=== PATIENT | female | born 2000 | race Caucasian/White ===

== ENCOUNTER → 2023-06-13 15:00 | Outpatient (CLI) | payer OTHER, SELFPAY ==
--- NOTE | 2023-06-13 15:30 | DI.US.S_ITS ---
PROCEDURE: US OB <= 14 WEEKS FETUS INDICATIONS: dating and viability OUTSIDE/PRIOR DATING DATA: Last menstrual period (LMP): 04/15/2023. LMP-based estimated date of delivery (MARIAM): 01/20/2024. First dating scan (date and location): 06/13/2023. Estimated date of delivery (MARIAM) from first dating scan: 01/23/2024. TECHNIQUE: Real-time scanning was performed of the fetus and maternal pelvic organs, with image documentation. Endovaginal scanning was also performed to better visualize the fetus and maternal ovaries. COMPARISON: None. FINDINGS: Embryo: [place]-rump length 1.6 cm corresponds with a 8 week 0 day gestation Heart rate: 165 beats per minute Maternal organs: Left ovarian corpus luteum cyst. Right ovary not visualized. Cervix measures 3.1 cm in length and is closed. Yolk sac identified. IMPRESSION: Single live intrauterine consistent with a 8 week 0 day gestation Approved by: Michael Joseph M.D. on 06/13/2023 at 18:52
== END ==
LOC: US 15:01
PROVIDERS: Referring Provider Family Medicine; Visit Provider Family Medicine
DX: Z34.01 Encounter for supervision of normal first pregnancy, first trimester (principal); Z3A.08 8 weeks gestation of pregnancy
CPT/HCPCS: 76801

== ENCOUNTER → 2023-07-10 16:34 | Outpatient (CLI) | payer OTHER, SELFPAY ==
[2023-07-10 20:51] LABS: Urine N gonorrhoeae NOT DETECTED
[2023-07-10 21:00] LABS: Urine Chlamydia NOT DETECTED
== END ==
PROVIDERS: PCP Student in an Organized Health Care Education/Training Program; Visit Provider Family Medicine
DX: Z11.3 Encounter for screening for infections with a predominantly sexual mode of transmission (principal)
CPT/HCPCS: 87210; 87491; 87591

== ENCOUNTER 2023-07-11 01:01 | Emergency (ER) | payer OTHER, SELFPAY ==
--- NOTE | 2023-07-11 01:09 | ED_ITS ---
HPI - General Chief complaint: Vaginal Bleeding Stated complaint: MISCARRIAGE Time Seen by Provider: 07/11/23 01:03 History of Present Illness HPI Narrative: Ashish at 12w2d presents for heavy vaginal bleeding this evening. She saw her OBGYN this morning for bleeding in and was told that she may likely have a miscarriage. She was told to come to the ER if her bleeding worsened. Patient reports heavy bleeding starting around 11:00 p.m.. Thinks she is blood type A- Related Data Home Medications Medication Instructions Recorded Confirmed albuterol sulfate 90 mcg/actuation 2 puff inhalation Q4-6H PRN 05/23/23 07/10/23 aerosol inhaler cyclobenzaprine 10 mg tablet 10 mg PO BEDTIME PRN occipital 05/23/23 07/10/23 neuralgia vitamin-ferrous sulfate tab PO 05/23/23 07/10/23 27 mg iron-folic acid 0.8 mg tablet Allergies Allergy/AdvReac Type Severity Reaction Status Date / Time Penicillins [PENICILLINS] Allergy Intermediate Hives Verified 07/11/23 01:23 Review of Systems Review of Systems Narrative: See HPI Exam Narrative Exam Narrative: Const: Awake, alert, no acute distress, nontoxic appearing Cardiac: regular rate, regular rhythm RESP: unlabored, clear bilaterally, no wheezing GI: Soft, nontender, nondistended : Claim Service Representative present, cervical os open, tissue actively being expelled from cervix Skin: Warm, Dry, intact, no rashes Neuro: AO x3, CN II-XII grossly intact, moves all extremities Initial Vital Signs Initial Vital Signs: Vital Signs Temperature 98.2 F 07/11/23 01:17 Pulse Rate 80 07/11/23 01:17 Respiratory Rate 20 07/11/23 01:17 Blood Pressure 103/51 L 07/11/23 01:17 Pulse Oximetry 96 07/11/23 01:17 Oxygen Delivery Method Room Air 07/11/23 01:17 Course Orders Ordered: ED Orders 07/11/23 01:10 ABO RH Type Stat CBC Auto Diff [Complete Blood Count AUTO DIFF] Stat CMP [Comprehensive Metabolic Panel] Stat HCG Quantitative /Beta subunit Stat Discontinued Medications Sodium Chloride (Normal Saline 0.9%) 1,000 mls @ 1,000 mls/hr IV BOLUS ONE Stop: 07/11/23 02:09 Last Infusion: 07/11/23 02:00 Dose: Infused Documented By: Admin: 07/11/23 01:14 Dose: 1,000 mls/hr Documented By: Ondansetron HCl (Ondansetron 4 Mg/2 Ml Inj) 4 mg IV NOW ONE Stop: 07/11/23 01:11 Last Admin: 07/11/23 01:15 Dose: 4 mg Documented By: Rho Immune Globulin (Rho(D) Immune Globulin 1,500 Unit Syringe) 1,500 unit IM NOW ONE Stop: 07/11/23 01:55 Last Admin: 07/11/23 02:10 Dose: 1,500 unit Documented By: Vital Signs Vital signs: Vital Signs - 8 hr 07/11/23 01:17 07/11/23 02:00 07/11/23 02:01 Temperature 98.2 F Pulse Rate 80 75 Respiratory Rate 20 Blood Pressure 103/51 L 114/62 Pulse Oximetry 96 98 Oxygen Delivery Method Room Air 07/11/23 02:30 07/11/23 02:30 Temperature Pulse Rate 68 Respiratory Rate Blood Pressure 148/79 H Pulse Oximetry 98 Oxygen Delivery Method MDM - OB/Uterine Contractions Differential Diagnosis Differential diagnosis: Likely -induced hypertension and other (threatened miscarriage, completed miscarriage) Lab Data 07/11/23 01:10 07/11/23 01:10 Labs: Lab Results 07/11/23 Range/Units 01:10 WBC 11.5 H (4.5-11.0) X10^3/uL RBC 4.32 (4.0-5.2) X10^6/uL Hgb 12.3 (12.0-16.0) g/dL Hct 36.3 (36-46) % MCV 84.1 (80-100) fL MCH 28.5 (26-34) PG MCHC 34.0 (30-36) % RDW 12.8 (11.6-14.8) % Plt Count 232 (150-400) X10^3/uL Neut % (Auto) 67.8 (50-75) % Lymph % (Auto) 23.5 L (25-40) % [place] % (Auto) 7.2 (3-14) % Eos % (Auto) 1.0 L (2-4) % Baso % (Auto) 0.5 (0-2) % Neut # (Auto) 7800 H (1353-4769) /uL Lymph # (Auto) 2700 (6608-1835) /uL [place] # (Auto) 800 (0-900) /uL Eos # (Auto) 100 (0-450) /uL Baso # (Auto) 100 (0-100) /uL Sodium 138 (137-145) mmol/L Potassium 4.0 (3.4-5.1) mmol/L Chloride 108 H (98-107) mmol/L Carbon Dioxide 22 (22-32) mmol/L BUN 5 L (7-17) mg/dL Creatinine 0.46 L (0.52-1.04) mg/dL Estimated GFR > 60 (>60) mL/min BUN/Creatinine Ratio 10.9 (6-22) Glucose 112 H (70-100) mg/dL Calcium 9.5 (8.4-10.2) mg/dL Total Bilirubin 0.5 (0.2-1.3) mg/dL AST 29 (14-36) IU/L ALT 23 (<35) IU/L Alkaline Phosphatase 69 (38-126) U/L Total Protein 7.5 (6.3-8.2) g/dL Albumin 4.4 (3.5-5.0) g/dL Globulin 3.1 (1.7-4.1) g/dL Albumin/Globulin Ratio 1.4 (1.0-2.8) HCG, Quant 4326.7 mIU/mL Blood Type A Negative MDM Narrative Medical decision making narrative: Large amount of bleeding and clots with tissue passage in first-trimester . Patient already has confirmed IUP, she is most likely actively miscarrying. Cervix is open with active tissue passage through the os. Patient confirmed to be blood type A negative and she was given RhoGAM. HCG quant obtained and patient advised to follow up with OBGYN to ensure it returns to normal Discharge Plan Departure Patient Disposition: Home Clinical Impression: Miscarriage, Type A blood, Rh negative Instructions: DI for Miscarriage Activity Restrictions/Additional Instructions: Follow up with your OBGYN to ensure that your HCG returns to normal. Prescriptions: No Action vit-ferrous sulfat-FA 27 mg iron- 0.8 mg tablet PO albuterol sulfate 90 mcg/actuation HFA aerosol inhaler 2 puff inhalation Q4-6H PRN cyclobenzaprine 10 mg tablet 10 mg PO BEDTIME PRN (Reason: occipital neuralgia) Referrals: Mary Claire MD [Primary Care Provider] - Stand Alone Forms: Patient Portal/API, Work Release Note
[2023-07-11] MEDS: SODIUM CHLORIDE 0.9% 1,000 ML 1000 ML IV (01:14)
[2023-07-11] MEDS: ONDANSETRON 4 MG/2 ML INJ IV (01:15)
[2023-07-11 01:17] VITALS: BP 103/51; PULSE 80; RESP 20; TEMP 36.8; O2SAT 96; BMI 34.9
[2023-07-11 01:28] LABS: Add Manual Diff / Slide Review NO; Basophils Absolute Auto 100 /uL (0-100); Basophils Percent Auto 0.5 % (0-2); Eosinophils Absolute Auto 100 /uL (0-450); Hematocrit 36.3 % (36-46); Hemoglobin 12.3 g/dL (12.0-16.0); Lymphocytes Absolute Auto 2700 /uL (1100-4500); Lymphocytes Percent Auto 23.5 % (25-40); Mean Corpuscular Hemoglobin 28.5 PG (26-34); Mean Corpuscular Volume 84.1 fL (80-100); Monocytes Absolute Auto 800 /uL (0-900); Monocytes Percent Auto 7.2 % (3-14); Neutrophils Absolute Auto 7800 /uL (1500-7000); Neutrophils Percent Auto 67.8 % (50-75); Platelet Count 232 X10^3/uL (150-400); Red Blood Cell Count 4.32 X10^6/uL (4.0-5.2); Red Cell Distribution Width 12.8 % (11.6-14.8); White Blood Cell Count 11.5 X10^3/uL (4.5-11.0)
[2023-07-11 01:40] LABS: Alanine Aminotransferase 23 IU/L (<35); Albumin 4.4 g/dL (3.5-5.0); Albumin Globulin Ratio 1.4 (1.0-2.8); Alkaline Phosphatase 69 U/L (38-126); Aspartate Aminotransferase 29 IU/L (14-36); BUN Creatinine Ratio 10.9 (6-22); Bilirubin Total 0.5 mg/dL (0.2-1.3); Blood Urea Nitrogen 5 mg/dL (7-17); Calcium 9.5 mg/dL (8.4-10.2); Carbon Dioxide 22 mmol/L (22-32); Chloride 108 mmol/L (98-107); Estimated Glomerular Filt Rate > 60 mL/min (>60); Globulin 3.1 g/dL (1.7-4.1); Glucose 112 mg/dL (70-100); HEMOLYSIS < 15 (0-50); Sodium 138 mmol/L (137-145); Total Protein 7.5 g/dL (6.3-8.2)
[2023-07-11 02:00] VITALS: BP 114/62
[2023-07-11 02:01] VITALS: PULSE 75; O2SAT 98
[2023-07-11] MEDS: RHO(D) IMMUNE GLOBULIN 1,500 UNIT SYRINGE 1500 UNIT IM (02:10)
[2023-07-11 02:30] VITALS: BP 148/79; PULSE 68; O2SAT 98
[2023-07-11 02:55] LABS: HCG Quantitative /Beta subunit 4326.7 mIU/mL
== END 2023-07-11 02:53 | disposition home or self-care (01) ==
PROVIDERS: Emergency Provider Emergency Medicine; PCP Student in an Organized Health Care Education/Training Program
DX: O03.9 Complete or unspecified spontaneous abortion without complication (principal); Z67.11 Type A blood, Rh negative
CPT/HCPCS: 36415; 80053; 84702; 85025; 86900; 86901; 96372; 96374; 99284; J2405; J2790

== ENCOUNTER → 2023-07-21 16:22 | Outpatient (CLI) | payer OTHER, SELFPAY | PROVIDERS: PCP Student in an Organized Health Care Education/Training Program; Referring Provider Family Medicine; Visit Provider Family Medicine | DX: O03.9 Complete or unspecified spontaneous abortion without complication (principal) | CPT/HCPCS: 36415; 86644; 86645 ==

== ENCOUNTER → 2023-10-16 15:40 | Outpatient (CLI) | payer OTHER, SELFPAY ==
--- NOTE | 2023-10-16 15:42 | DI.US.S_ITS ---
PROCEDURE: US OB <= 14 WEEKS FETUS INDICATIONS: dating and viability OUTSIDE/PRIOR DATING DATA: Last menstrual period (LMP): 08/17/2023 LMP-based estimated date of delivery (MARIAM): 05/23/2024 First dating scan (date and location): 10/16/2023 Estimated date of delivery (MARIAM) from first dating scan: 05/24/2024 TECHNIQUE: Real-time scanning was performed of the fetus and maternal pelvic organs, with image documentation. Endovaginal scanning was also performed to better visualize the fetus and maternal ovaries. COMPARISON: [facility], , OB <= 14 WEEKS FETUS, 06/13/2023, 15:38. FINDINGS: Embryo: Single live intrauterine gestation is seen with fetus and yolk sac seen. [place]-rump length measures 1.9 cm. Estimated gestational age is 8 weeks, 3 days. Heart rate: 165 beats per minute. Maternal organs: Corpus luteal cyst is seen in right ovary measures 1.5 x 1.5 x 1.3 cm in size. Small perigestational hematoma is noted measures 0.4 x 0.6 x 1.0 cm in size. IMPRESSION: 1. Single live intrauterine gestation with fetus and yolk sac seen. Estimated gestational age based on current study is 8 weeks, 3 days. heart rate is 165 beats per minute. 2. Corpus luteal cyst in right ovary measures 1.5 cm in size. Tiny perigestational hematoma as above. We strive to produce accurate, complete, and clear reports of imaging services. To assist us in improving patient care, this report was composed using standard report templates and voice recognition software. Therefore, it may contain abnormal punctuation, insertions and/or omissions. Occasional wrong-word or sound-alike substitutions may occur. Though we review the report and make efforts to correct it, we do recommend that the report be read carefully in proper context to recognize any text inaccuracies. Dictated by: Michael Chu M.D. on 10/17/2023 at 14:25 Approved by: Michael Chu M.D. on 10/17/2023 at 14:30
== END ==
PROVIDERS: PCP Family Medicine; Referring Provider Family Medicine; Visit Provider Family Medicine
DX: O34.81 Maternal care for other abnormalities of pelvic organs, first trimester (principal); N83.11 Corpus luteum cyst of right ovary; Z3A.08 8 weeks gestation of pregnancy
CPT/HCPCS: 76801; 76817

== ENCOUNTER → 2023-11-23 16:43 | Outpatient (CLI) | payer OTHER, SELFPAY ==
[2023-11-23 17:47] LABS: Natera Collection Specimen Collected
[2023-11-24 01:25] LABS: Rubella Antibody IgG 34.9 IU/mL (>15)
== END ==
LOC: LAB 16:43
PROVIDERS: PCP Family Medicine; Referring Provider Family Medicine; Visit Provider Family Medicine
DX: Z34.80 Encounter for supervision of other normal pregnancy, unspecified trimester (principal)
CPT/HCPCS: 36415; 86592; 86762; 86787; 86850; 86900; 86901; 87535; 87538

== ENCOUNTER → 2023-12-28 14:48 | Outpatient (CLI) | payer OTHER, SELFPAY ==
--- NOTE | 2023-12-28 15:00 | DI.US.S_ITS ---
PROCEDURE: US OB >= 14 WEEKS FETUS INDICATIONS: ANATOMY OUTSIDE/PRIOR DATING DATA: Last menstrual period (LMP): 08/17/2023. LMP-based estimated date of delivery (MARIAM): 05/23/2024. First dating scan (date and location): 10/16/2023. Estimated date of delivery (MARIAM) from first dating scan: 05/24/2024. The calculations are made using the clinical MARIAM of 05/23/2024. TECHNIQUE: Real-time scanning was performed of the fetus, with image documentation and biometric measurements. Endovaginal scanning: Not performed COMPARISON: Ob ultrasound 10/16/2023. FINDINGS: General: A single living intrauterine gestation is present. Presentation: Vertex. Placenta: Placental position is posterior , without previa. Amniotic fluid index: 15.0 cm, normal range is 5-24 cm. Single deepest vertical pocket is 4.2 cm. heart rate: 133 beats per minute. Maternal cervical canal: 2.7 cm long. Normal lower limit is 2.5 cm. biometrics: Biparietal diameter: 4.6 cm Head circumference: 16.6 cm Abdominal circumference: 13.9 cm Femur length: 3.1 cm Clinically estimated gestational age: 19 weeks, 0 days (based on LMP) Composite gestational age from present scan: 19 weeks, 4 days Estimated weight and percentile: 290 g, 69th percentile Anatomic survey: Neuro: Ventricles are non-dilated at less than 10 mm. Cisterna magna is normal at 3-11 mm. Cerebellum is normal in size and morphology. Nuchal skin fold: Normal at less than 6 mm between 14-21 weeks gestational age. Face: Nose and lips, facial profile are not well visualized. Spine: No evidence for spina bifida. Heart: 4-chambered heart is present, with normal ventricular outflow tracts. Diaphragm: Diaphragm is intact. Stomach: Left-sided stomach is present. Kidneys: No hydronephrosis. Normal is less than 5 mm in 2nd trimester, less than 7 mm in 3rd trimester. Cord: 3-vessel cord has orthotopic insertion. Bladder: Normal in size. Extremities: All 4 extremities identified. IMPRESSION: Single intrauterine gestation in vertex presentation with estimated gestational age of 19 weeks, 4 days by biometry which is concordant clinical dating. Estimated weight in 69th percentile. anatomic survey demonstrates no gross abnormalities. face, lips and orbits are not well visualized secondary to position. Recommend short interval follow-up to complete anatomic survey. Approved by: Pearl Underwood M.D.,Ph.D. on 12/29/2023 at 3:42
== END ==
PROVIDERS: PCP Family Medicine; Referring Provider Family Medicine; Visit Provider Family Medicine
DX: Z34.82 Encounter for supervision of other normal pregnancy, second trimester (principal); Z3A.19 19 weeks gestation of pregnancy
CPT/HCPCS: 76811

== ENCOUNTER → 2024-01-03 13:46 | Outpatient (CLI) | payer OTHER, SELFPAY ==
--- NOTE | 2024-01-03 13:47 | DI.US.S_ITS ---
PROCEDURE: US OB FOLLOW UP INDICATIONS: face, lips and orbits are not well visualized OUTSIDE/PRIOR DATING DATA: Last menstrual period (LMP): 08/17/2023. LMP-based estimated date of delivery (MARIAM): 05/23/2024. First dating scan (date and location): 10/16/2023. Estimated date of delivery (MARIAM) from first dating scan: 05/24/2024. The calculations are made using the working MARIAM of 05/23/2024. TECHNIQUE: Real-time scanning was performed of the fetus, with image documentation and biometric measurements. Endovaginal scanning: No COMPARISON: None. FINDINGS: General: A single living intrauterine gestation is present. Presentation: Vertex. Placenta: Placental position is posterior , without previa. Amniotic fluid index: 16.9 cm, normal range is 5-24 cm. Single deepest vertical pocket is 6.1 cm. heart rate: 131 beats per minute. Maternal cervical canal: 3.0 cm long. Normal lower limit is 2.5 cm. biometrics: Clinically estimated gestational age: 19 week 6 days Anatomic survey: Facial profile including the nose lips and orbits are within normal limits. IMPRESSION: Single live intrauterine consistent with 19 week 6 day gestation Facial profile, nose and lips normal. This completes the normal anatomic survey Approved by: Michael Jospeh M.D. on 01/03/2024 at 16:43
== END ==
PROVIDERS: PCP Family Medicine; Referring Provider Family Medicine; Visit Provider Family Medicine
DX: Z34.82 Encounter for supervision of other normal pregnancy, second trimester (principal); Z3A.19 19 weeks gestation of pregnancy
CPT/HCPCS: 76816

== ENCOUNTER 2024-01-04 10:24 | Observation (INO) | payer OTHER, SELFPAY ==
[2024-01-04 10:55] LABS: Appearance Urine UA CLEAR; Bilirubin Urine UA NEGATIVE (NEGATIVE); Color Urine UA YELLOW; Glucose Urine UA NEGATIVE (Negative); Ketones Urine UA TRACE (NEGATIVE); Leukocyte Esterase Urine UA TRACE (NEGATIVE); Nitrite Urine UA NEGATIVE (Negative); Occult Blood Urine UA NEGATIVE (Negative); Protein Urine UA NEGATIVE (Negative); Specific Gravity Urine UA >=1.030 (1.000-1.035); Urobilinogen Urine UA 0.2 E.U./dL (0.2)
[2024-01-04 11:00] LABS: pH Urine UA 5.5 (4.5-8.0)
[2024-01-04 11:03] LABS: Urine Volume 10mL (spun)
[2024-01-04 11:04] LABS: Bacteria Urine Few (2-10); Culture Indicated Urine Cult Not Indicated; RBC Urine None Seen (0-5/HPF); Squamous Epithelial Cell Urine 1-5 /HPF (0-5/HPF); WBC Urine 1-5/HPF (0-5/HPF)
== END 2024-01-04 12:51 | disposition home or self-care (01) ==
PROVIDERS: Admitting Provider Family Medicine; PCP Family Medicine; Referring Provider Family Medicine; Visit Provider Family Medicine
DX: O26.892 Other specified pregnancy related conditions, second trimester (principal); N89.8 Other specified noninflammatory disorders of vagina; R10.30 Lower abdominal pain, unspecified; Z3A.20 20 weeks gestation of pregnancy
CPT/HCPCS: 76815; 81001; 84112; 87086; 87210; G0378; G0379

== ENCOUNTER → 2024-02-13 16:08 | Outpatient (CLI) | payer OTHER, SELFPAY ==
[2024-02-13 18:29] LABS: GTT (PREG) 1 Hour PP 50gm Dose 140 mg/dL (76-139)
== END ==
PROVIDERS: PCP Family Medicine; Referring Provider Family Medicine; Visit Provider Family Medicine
DX: Z34.80 Encounter for supervision of other normal pregnancy, unspecified trimester (principal)
CPT/HCPCS: 36415; 82950

== ENCOUNTER → 2024-04-26 14:23 | Outpatient (CLI) | payer OTHER, SELFPAY ==
[2024-04-27 11:23] LABS: Strep Grp B PCR NEG for Grp B Strep
== END ==
PROVIDERS: PCP Family Medicine; Visit Provider Family Medicine
DX: Z34.80 Encounter for supervision of other normal pregnancy, unspecified trimester (principal)
CPT/HCPCS: 87653

== ENCOUNTER 2024-05-30 11:33 | Inpatient (IN) | payer OTHER, SELFPAY ==
--- NOTE | 2024-05-30 13:07 | PM.OBHP.IH.1 ---
OB HPI Date/Time Date of admission: 05/30/24 Date Patient Seen: 05/30/24 Time Patient Seen: 12:50 History of Present Condition Chief complaint: NST MARIAM Calculator Estimated Delivery Date Method Current WG Current Estimate 05/23/24 LMP (Certain) 41w 0d Other Estimates 05/24/24 Ultrasound #1 40w 6d Estimated Gestational Age (weeks): 41w0d : 2 Para: 0 Narrative: 23 yo (first trimester SAB) presenting with LOF. This AM around 4am she noted trickling of fluids. She is not feeling any significant contractions but overnight from 12-3am she did have more frequent painful contractions. No vaginal bleeding. She is feeling baby move care: good care Dating criteria OB: LMP confirmed by 1st trimester US Ultrasounds: normal 1st trimester US and normal mid trimester US Obstetrical complications: none Medical complications OB: none Preadmission Labs Last OB Lab Results: Blood Type A Negative 11/23/23 16:47 Antibody Screen Negative 11/23/23 16:47 Hct 36.3 % (36-46) 07/11/23 01:10 Hgb 12.3 g/dL (12.0-16.0) 07/11/23 01:10 Rubella Antibody 34.9 IU/mL (>15) 11/23/23 16:47 VZV IgG Antibody <135 index (Immune >165) L 11/23/23 16:47 Glucose 1 Hr 50 gm 140 mg/dL (76-139) H 02/13/24 17:45 Group B Strep (PCR) Neg for grp b strep 04/26/24 12:30 Glucose Tolerance Testin hr (140, unable to complete 3hr due to vomiting, glucose checks nml ) -: Chlamydia screen: negative, Gonorrhea screen: negative and Urine: negative -: PAP smear: Abnormal (07/10/23, unsatisfactory, planning for repeat PP) Genetic Screens: Cell-free DNA: Normal (low risk female ) External Labs -: Urine: negative Prior (ies) Past Pregnancies Del. Date GA/Weeks Labor Lgth Wt Sex Route Outcome Anesthesia Place Delv Breastfeed Preg Comp Name 07/10/23 8-10 spontaneous Delivery Date: 07/10/23 Last Updated by: Kathryn Pretty RN Resolved spontaneously, no complications Hx # Term Pregnancies: 0 Hx # Pregnancies: 0 Number of Living Children: 0 Multiple births: 0 Spontaneous abortions: 1 Ectopic pregnancies: 0 Elective abortions: 0 Evaluation Evaluation Baseline heart rate: 120 Variability: Moderate (11-25) monitor accelerations: Present Monitor Decelerations: Absent Contraction Frequency (minutes): 0 Status: Category l Dilation (cm): 1.5 Effacement (%): 60 Dilation: 1-2 cm Effacement: 60-70% station: -3 Position of cervix: mid Consistency: medium Churchill score: 5 Non-invasive Membranes Rupture Test: positive PFSH Medical History (Updated 09/18/23 @ 11:38 by Kathryn Pretty RN) Headache Miscarriage Fibromyalgia (~2014) Migraine with aura Asthma Left ovarian cyst TMJ (temporomandibular joint disorder) Joint injury Finger fracture Toe fracture Surgical History (Updated 05/23/23 @ 15:12 by Kathryn Pretty RN) H/O esophagogastroduodenoscopy (~2011) History of tonsillectomy and adenoidectomy [place] teeth extracted Family History (Updated 05/23/23 @ 15:19 by Kathryn Pretty RN) Mother Hypertrophic obstructive cardiomyopathy Diabetes mellitus Hypertension Migraine Rosai-Chaz disease Brother Diabetes mellitus Grandmother Diabetes mellitus Hypertension Grandfather Coagulopathy Granddaughter Fibromyalgia Rheumatoid arthritis Family/Other Autism Aunt Hodgkin lymphoma Aunt Hodgkin lymphoma Grandmother Heart disease Social History marital status: number of children: 0 household members: spouse lives independently: No caregiver/support person: No housing: other pets and animals: Yes (dog) education level: college occupational status: employed current occupational exposures/hazards: Yes special eli needs: No travel history: recent seatbelt use: always water heater temp set < 120 deg: Yes working smoke detector in home: Yes fire extinguisher in home: Yes carbon monox detector in home: Yes firearms in home: Yes firearms unloaded and locked: Yes do you feel safe at home: Yes Smoking Status: Never smoker second hand exposure: Yes (parents and grandparents smoke) alcohol intake: former substance use type: does not use during the past year weight has: remained stable well-balanced diet: about half the time daily servings fruits/ve-4 caffeine: Yes (estimates <50mg/day) Type(s) of exercise: walking frequency: daily Meds Home Medications and Allergies Home Medications Medication Instructions Recorded Confirmed Type albuterol sulfate 90 mcg/actuation 2 puff inhalation Q4-6H PRN 05/23/23 05/24/24 History aerosol inhaler cyclobenzaprine 10 mg tablet 10 mg PO BEDTIME PRN occipital 05/23/23 05/24/24 History neuralgia vitamin-ferrous sulfate tab PO 05/23/23 05/24/24 History 27 mg iron-folic acid 0.8 mg tablet glucometer #1 ea 02/22/24 05/24/24 Rx glucometer test strips #100 ea 02/22/24 05/24/24 Rx lancets (Accu-Chek Softclix #100 ea 02/22/24 05/24/24 Rx Lancets) breast pump #1 ea 04/12/24 05/24/24 Rx hydroxyzine pamoate 25 mg capsule 25 mg PO BEDTIME PRN iching #60 04/19/24 05/24/24 Rx (Vistaril) caps ondansetron 4 mg disintegrating 4 mg PO Q8H PRN nausea and 05/03/24 05/24/24 Rx tablet vomiting #30 tabs Allergies Allergy/AdvReac Type Severity Reaction Status Date / Time Penicillins [PENICILLINS] Allergy Intermediate Hives Verified 05/24/24 08:01 Review of Systems Review of Systems Narrative: + LOF + FM - Ctx - VB OB Exam Vital signs Temperature: 97.2 F Narrative Exam Narrative: GEN: well appearing, NAD Eyes: EOMI CV: warm and well perfused Pulm: breathing comfortably on RA ABD: gravid, non-tender : nml external genitalia SVE: 1.5/60/-3/mod/mid MSK: scan edema, symmetric Assessment and Plan Assessment and Plan Assessment and Plan narrative: 23 yo (first trimester SAB) presenting with LOF. This AM around 4am she noted trickling of fluids. Amnisure + on arrival ## SROM: Amnisure +, no contractions - Admit to LD - continuous monitoring - TS, CBC - Will give oral cytotec due to staffing shortages, will transition to Pit once able - Epidural available at pt request - GBS negative - Sutures palpated on exam - Low risk babygirl ## Failed 1hr GTT, unable to tolerate 3hr- checked glucomter reads with all nml reads - stools at bedside with delivery ## Varicella non-immune - PP MMR-V Time-Based Coding :: [TOTAL MINUTES] spent with patient and on the chart (including review of chart, obtaining history, exam, reviewing outside data, placing orders, documenting exam and treatment plan, and counseling patient) on [DATE].
[2024-05-30 13:24] VITALS: TEMP 36.2
[2024-05-30 13:59] LABS: Add Manual Diff / Slide Review NO; Basophils Absolute Auto 0 /uL (0-100); Basophils Percent Auto 0.4 % (0-2); Eosinophils Absolute Auto 0 /uL (0-450); Eosinophils Percent Auto 0.2 % (2-4); Hematocrit 29.6 % (36-46); Hemoglobin 9.8 g/dL (12.0-16.0); Lymphocytes Absolute Auto 1400 /uL (1100-4500); Mean Corpuscular Hemoglobin 25.3 PG (26-34); Mean Corpuscular Volume 76.7 fL (80-100); Monocytes Absolute Auto 600 /uL (0-900); Monocytes Percent Auto 5.8 % (3-14); Neutrophils Absolute Auto 8900 /uL (1500-7000); Neutrophils Percent Auto 80.6 % (50-75); Platelet Count 280 X10^3/uL (150-400); Red Blood Cell Count 3.86 X10^6/uL (4.0-5.2); Red Cell Distribution Width 14.4 % (11.6-14.8); White Blood Cell Count 11.1 X10^3/uL (4.5-11.0)
[2024-05-30 14:46] VITALS: BP 137/75
[2024-05-30] MEDS: miSOPROStoL 200 MCG TABLET 25 MCG SL (15:58)
[2024-05-30] MEDS: ZOLPIDEM 5 MG TABLET PO (22:47)
[2024-05-31] MEDS: LACTATED RINGERS 1,000 ML 125 ML IV (00:22)
[2024-05-31] MEDS: OXYTOCIN PREMIX 30 UNIT/500 ML PLAST..BAG IV (00:32)
--- NOTE | 2024-05-31 04:07 | PM.AN.REGBLK ---
Regional Block Pre-procedure Procedure: Continuous Lumbar Epidural for L&D Attending OB provider: Suyapa Negrete Labs: Hct 29.6 % (36-46) L 05/30/24 13:10 Plt Count 280 X10^3/uL (150-400) 05/30/24 13:10 Medications: Current Medications Generic Name Dose Route Start Last Admin Trade Name Freq PRN Reason Stop Dose Admin Carboprost Tromethamine 250 mcg 05/30/24 13:14 Carboprost 250 Mcg/Ml Ampul IM Q90M PRN Bleeding Diphenhydramine HCl 25 mg 05/31/24 04:05 Diphenhydramine 50 Mg/Ml Vial IV 06/01/24 04:05 Q3HR PRN PRURITUS Diphenhydramine HCl 25 mg 05/31/24 04:06 Diphenhydramine 50 Mg/Ml Vial IV Q10M PRN Pruritis Fentanyl 50 mcg 05/30/24 13:14 Fentanyl 100 Mcg/2 Ml Inj IV Q1H PRN Pain, Moderate (4-6) Hydroxyzine HCl 50 mg 05/30/24 22:07 Hydroxyzine Hcl 25 Mg Tablet PO Q4H PRN Nausea Oxytocin/Lactated Ringer's 30 unit in 500 mls @ 200 mls/hr 05/30/24 13:14 Oxytocin Premix IV CONT PRN Bleeding Protocol Tranexamic Acid 1,000 mg/ 100 mls @ 600 mls/hr 05/30/24 13:14 Sodium Chloride IV NOW PRN Bleeding Oxytocin/Lactated Ringer's 30 unit in 500 mls @ 2 mls/hr 05/30/24 13:15 05/31/24 00:32 Oxytocin Premix IV 2 milliunit/min TITRATE OCTAVIA 2 mls/hr Administration Protocol 2 MILLIUNIT/MIN Lidocaine HCl 20 ml 05/30/24 13:14 Lidocaine 1% 20 Ml INJ INTRA-OP PRN Post Delivery Methylergonovine Maleate 0.2 mg 05/30/24 13:14 Methylergonovine 0.2 Mg Tablet PO Q6HR PRN Heavy Bleeding Methylergonovine Maleate 0.2 mg 05/30/24 13:14 Methylergonovine 0.2 Mg/Ml Vial IM NOW PRN Bleeding Metoclopramide HCl 10 mg 05/31/24 04:05 Metoclopramide 10 Mg/2 Ml Inj IV 06/01/24 04:05 Q4H PRN Nausea Mineral Oil 30 ml 05/30/24 13:14 Mineral Oil 30 Ml Udc TOP PRN PRN Version Misoprostol 800 mcg 05/30/24 13:14 Misoprostol 200 Mcg Tablet HI NOW PRN Bleeding Misoprostol 50 mcg 05/30/24 22:45 Misoprostol 25 Mcg Tablet VAG Q4H OCTAVIA Nalbuphine HCl 5 mg 05/31/24 04:05 Nalbuphine 20 Mg/Ml Ampul IV Q6H PRN PRURITIS Nalbuphine HCl 2.5 mg 05/31/24 04:06 Nalbuphine 20 Mg/Ml Ampul IV Q10M PRN Pruritis Naloxone HCl 0.2 mg 05/30/24 13:14 Naloxone 0.4 Mg/Ml Vial IV Q2MIN PRN Opiate Reversal Naloxone HCl 0.4 mg 05/31/24 04:05 Naloxone 0.4 Mg/Ml Vial IV Q2MIN PRN Opiate Reversal Ondansetron HCl 4 mg 05/30/24 13:14 Ondansetron 4 Mg/2 Ml Inj IV Q4HR PRN Nausea And Vomiting Ondansetron HCl 4 mg 05/31/24 04:05 Ondansetron 4 Mg/2 Ml Inj IV 06/01/24 04:05 Q6HR PRN Nausea Oxytocin 10 unit 05/30/24 13:14 Oxytocin 10 Unit/Ml Vial IM NOW PRN Bleeding Zolpidem Tartrate 5 mg 05/30/24 22:08 05/30/24 22:47 Zolpidem 5 Mg Tablet PO 5 mg BEDTIME PRN Administration Sleep Allergies: Allergies Allergy/AdvReac Type Severity Reaction Status Date / Time Penicillins [PENICILLINS] Allergy Intermediate Hives Verified 05/24/24 08:01
--- NOTE | 2024-05-31 04:09 | PM.AN.REGBLK ---
Regional [facility] <Jovanna Hoyos CRNA - Last Filed: 05/31/24 04:14> Pre-procedure Procedure: Continuous Lumbar Epidural for L&D Attending OB provider: Suyapa Negrete PMH/ROS narrative: requesting MARLEEN for labor pain. SROM yestereday. On pit gtt, rating contraction pain 7/10. PSH/Anesthesia history narrative: See pre-anesthesia eval form. Exam narrative: See pre-anesthesia eval form. ASA Class: II Labs: Hct 29.6 % (36-46) L 05/30/24 13:10 Plt Count 280 X10^3/uL (150-400) 05/30/24 13:10 Medications: Current Medications Generic Name Dose Route Start Last Admin Trade Name Freq PRN Reason Stop Dose Admin Carboprost Tromethamine 250 mcg 05/30/24 13:14 Carboprost 250 Mcg/Ml Ampul IM Q90M PRN Bleeding Diphenhydramine HCl 25 mg 05/31/24 04:05 Diphenhydramine 50 Mg/Ml Vial IV 06/01/24 04:05 Q3HR PRN PRURITUS Diphenhydramine HCl 25 mg 05/31/24 04:06 Diphenhydramine 50 Mg/Ml Vial IV Q10M PRN Pruritis Fentanyl 50 mcg 05/30/24 13:14 Fentanyl 100 Mcg/2 Ml Inj IV Q1H PRN Pain, Moderate (4-6) Hydroxyzine HCl 50 mg 05/30/24 22:07 Hydroxyzine Hcl 25 Mg Tablet PO Q4H PRN Nausea Oxytocin/Lactated Ringer's 30 unit in 500 mls @ 200 mls/hr 05/30/24 13:14 Oxytocin Premix IV CONT PRN Bleeding Protocol Tranexamic Acid 1,000 mg/ 100 mls @ 600 mls/hr 05/30/24 13:14 Sodium Chloride IV NOW PRN Bleeding Oxytocin/Lactated Ringer's 30 unit in 500 mls @ 2 mls/hr 05/30/24 13:15 05/31/24 00:32 Oxytocin Premix IV 2 milliunit/min TITRATE OCTAVIA 2 mls/hr Administration Protocol 2 MILLIUNIT/MIN Lidocaine HCl 20 ml 05/30/24 13:14 Lidocaine 1% 20 Ml INJ INTRA-OP PRN Post Delivery Methylergonovine Maleate 0.2 mg 05/30/24 13:14 Methylergonovine 0.2 Mg Tablet PO Q6HR PRN Heavy Bleeding Methylergonovine Maleate 0.2 mg 05/30/24 13:14 Methylergonovine 0.2 Mg/Ml Vial IM NOW PRN Bleeding Metoclopramide HCl 10 mg 05/31/24 04:05 Metoclopramide 10 Mg/2 Ml Inj IV 06/01/24 04:05 Q4H PRN Nausea Mineral Oil 30 ml 05/30/24 13:14 Mineral Oil 30 Ml Udc TOP PRN PRN Version Misoprostol 800 mcg 05/30/24 13:14 Misoprostol 200 Mcg Tablet MS NOW PRN Bleeding Misoprostol 50 mcg 05/30/24 22:45 Misoprostol 25 Mcg Tablet VAG Q4H OCTAVIA Nalbuphine HCl 5 mg 05/31/24 04:05 Nalbuphine 20 Mg/Ml Ampul IV Q6H PRN PRURITIS Nalbuphine HCl 2.5 mg 05/31/24 04:06 Nalbuphine 20 Mg/Ml Ampul IV Q10M PRN Pruritis Naloxone HCl 0.2 mg 05/30/24 13:14 Naloxone 0.4 Mg/Ml Vial IV Q2MIN PRN Opiate Reversal Naloxone HCl 0.4 mg 05/31/24 04:05 Naloxone 0.4 Mg/Ml Vial IV Q2MIN PRN Opiate Reversal Ondansetron HCl 4 mg 05/30/24 13:14 Ondansetron 4 Mg/2 Ml Inj IV Q4HR PRN Nausea And Vomiting Ondansetron HCl 4 mg 05/31/24 04:05 Ondansetron 4 Mg/2 Ml Inj IV 06/01/24 04:05 Q6HR PRN Nausea Oxytocin 10 unit 05/30/24 13:14 Oxytocin 10 Unit/Ml Vial IM NOW PRN Bleeding Zolpidem Tartrate 5 mg 05/30/24 22:08 05/30/24 22:47 Zolpidem 5 Mg Tablet PO 5 mg BEDTIME PRN Administration Sleep Allergies: Allergies Allergy/AdvReac Type Severity Reaction Status Date / Time Penicillins [PENICILLINS] Allergy Intermediate Hives Verified 05/24/24 08:01 Procedure Insertion date: 05/31/24 Insertion time: 03:50 Prep/Local: 1% lidocaine (5mL. CHG for back prep) Interspace: L3/4 Patient position: sitting Needle: 18 gauge Starla Loss of resistance with: saline EDENILSON at (cm): 7 Catheter placed at SKIN (cm): 15 Catheter in SPACE (cm): 8 Insertion: No CSF, Yes Blood, Yes Paresthesia with insertion, No Paresthesia with injection and No Test dose reaction Initial Medications TEST DOSE time: 03:51 TEST DOSE: 1.5% lidocaine with epinephrine 1:200k (mL): 3 BOLUS DOSE time: 04:00 BOLUS DOSE (mL): 10 BOLUS DOSE med: other (infusate) Infusion INFUSION: 0.125% bupivacaine and with fentanyl 2 mcg/mL Initial rate (mL/hr): 10 Post-procedure Anesthesia date START: 05/31/24 Anesthesia time START: 04:00 <Octavia Daily DO - Last Filed: 05/31/24 11:10> Infusion Initial rate (mL/hr): 8 Subsequent interventions: 07:45 - Called to see pt for increasing pain with contractions, L>R. Pt reports epidural worked very well initially. She got some sleep but then woke up in pain, primarily on the left. She is currently laying with L side down. Able to move BLE. Loss of temperature sensation to T10 on both sides. Epidural rate increased from 8 to 10. Bolused with 2% lido PF, total of 10 ml. Mary Grace 10:15 - Called to see pt for increasing contraction pain again, primarily on the L. Jovanna Hoyos DIRECTOR REVENUE had suggested pulling the epidural catheter back 1 cm if pt continued to have a one-sided block, and pt and RN request this now. While attempting to pull the catheter back, it was noted to come back with tape removal to only 8 cm. Discussed with pt that we couldn't use the catheter at that depth or reinsert it, and we would need to replace the epidural. Epidural pump paused at 10:25 and pt prepped for new epidural. See new procedure note. Mary Grace Post-procedure Anesthesia date END: 05/31/24 Anesthesia time END: 10:25 Post-procedure Anesthesia Assessment: Yes CV function: HR/BP stable, Yes Resp function: RR/sat/airway adequate, Yes Post-op hydration adequate, Yes Pain control adequate, Yes Nausea & vomiting absent, Yes Temperature > 36 C, Yes Mental status appropriate and Yes Anesthesia complications (Inadvertent catheter removal. )
--- NOTE | 2024-05-31 07:05 | PM.OBPNLAB ---
Date/Time Date Patient Seen: 05/31/24 Time Patient Seen: 06:45 Pain Control Pain control: epidural Comments: slept overnight, was on one side and when she woke up feeling more numb on one side, just starting to reposition now Pelvic Exam Dilation (cm): 5.5 Effacement (%): 60 station: -2 Amniotic membrane status: Ruptured Comments: Forebag present, ruptured at 06:49 Contractions Contractions on admission: none Monitor mode: External Pitocin rate (mU/min): 2 Contraction frequency (min): 2 Contraction pattern: Regular Status status: Category ll Heart Rate Baseline: 120 Monitor Accelerations: Present Monitor Decelerations: Late (occassional shallow lates wtih good variability between, resolved with dropping Pit from 4 to 2 ) Monitor Variability: Moderate Assessment and Plan Assessment: active labor Plan: continuous present management Comments: 23 yo at 41w1d admitted for SROM wtih clear fluid. On arrival not ramiro, was given 1 dose of miso and began contraction, contractions too frequent overnight to repeat, started on Pitocin. Early this AM with some subtle late decels with good variability between, lates resolved with dropping Pit dose down. Now at 27 hours since ROM, no signs of intra-amniotic infection, temp stable, no tachycardia for mom or baby. ## SROM: at 4am on 05/30 (27 hours ruptured) - Rupture of forebag at 6:49, clear fluid - Continue pitocin, resume titration up - position changes to attempt to drop baby - Stools at bedside at delivery (failed 1hr GTT, unable to tolerate 3 hr but glucose checks - continuous monitoring, tracing now reassuring but was cat II for lates prior to dropping pit dose ## Failed 1hr GTT, unable to tolerate 3hr- checked glucomter reads with all nml reads - stools at bedside with delivery ## Varicella non-immune - PP MMR-V
[2024-05-31] MEDS: ePHEDrine 50 MG/ML VIAL 10 MG IV (08:08)
[2024-05-31] MEDS: ONDANSETRON 4 MG/2 ML INJ IV ×2 (08:20→11:47)
[2024-05-31] MEDS: FENT 2MCG/ML BUPIV 0.125% EPI 200 MCG/100 ML PLAST..BAG 10 MCG EPIDURAL (09:12)
[2024-05-31] MEDS: MINERAL OIL 30 ML UDC TOP (13:10)
--- NOTE | 2024-05-31 13:18 | P.PCN_ITS ---
[facility] Pre-procedure Procedure: Continuous Lumbar Epidural for L&D Attending OB provider: Suyapa Negrete PMH/ROS narrative: 23yo in labor. Previously had an epidural that was working adequately but with L-sided pain. Pt requested the epidural be pulled back as the MARKETING FINANCE SPECIALIST who placed it had told them we could do if the epidural casued problems. Unfortunately, while attempting to remove the tape to pull the epidural back, the catheter came partially out with the Tegaderm and required replacement. Pt agrees to new epidural. See pre-anesthesia assessment and Jovanna Hoyos's epidural procedure note for further details. ASA Class: II Labs: Hct 29.6 % (36-46) L 05/30/24 13:10 Plt Count 280 X10^3/uL (150-400) 05/30/24 13:10 Medications: Current Medications Generic Name Dose Route Start Last Admin Trade Name Freq PRN Reason Stop Dose Admin Carboprost Tromethamine 250 mcg 05/30/24 13:14 Carboprost 250 Mcg/Ml Ampul IM Q90M PRN Bleeding Diphenhydramine HCl 25 mg 05/31/24 04:05 Diphenhydramine 50 Mg/Ml Vial IV 06/01/24 04:05 Q3HR PRN PRURITUS Diphenhydramine HCl 25 mg 05/31/24 04:06 Diphenhydramine 50 Mg/Ml Vial IV Q10M PRN Pruritis Diphenhydramine HCl 25 mg 05/31/24 04:16 Diphenhydramine 50 Mg/Ml Vial IV Q10M PRN Pruritis Ephedrine Sulfate 10 mg 05/31/24 04:16 05/31/24 08:08 Ephedrine 50 Mg/Ml Vial IV 5 mg Q5M PRN Administration Blood pressure decrease more than 20% of baseline. Fentanyl 50 mcg 05/30/24 13:14 Fentanyl 100 Mcg/2 Ml Inj IV Q1H PRN Pain, Moderate (4-6) Hydroxyzine HCl 50 mg 05/30/24 22:07 Hydroxyzine Hcl 25 Mg Tablet PO Q4H PRN Nausea Oxytocin/Lactated Ringer's 30 unit in 500 mls @ 200 mls/hr 05/30/24 13:14 Oxytocin Premix IV CONT PRN Bleeding Protocol Tranexamic Acid 1,000 mg/ 100 mls @ 600 mls/hr 05/30/24 13:14 Sodium Chloride IV NOW PRN Bleeding Oxytocin/Lactated Ringer's 30 unit in 500 mls @ 2 mls/hr 05/30/24 13:15 05/31/24 00:32 Oxytocin Premix IV 2 milliunit/min TITRATE OCTAVIA 2 mls/hr Administration Protocol 2 MILLIUNIT/MIN FENT 2MCG/ML BUPIV 0.125% EPI 200 mcg in 100 mls @ 10 mls/hr 05/31/24 04:00 05/31/24 09:12 Fentanyl/Bupiv/Ns 2mcg/Ml - 0.125% EPIDURAL 10 mls/hr CONT OCTAVIA Administration Lidocaine HCl 20 ml 05/30/24 13:14 Lidocaine 1% 20 Ml INJ INTRA-OP PRN Post Delivery Methylergonovine Maleate 0.2 mg 05/30/24 13:14 Methylergonovine 0.2 Mg Tablet PO Q6HR PRN Heavy Bleeding Methylergonovine Maleate 0.2 mg 05/30/24 13:14 Methylergonovine 0.2 Mg/Ml Vial IM NOW PRN Bleeding Metoclopramide HCl 10 mg 05/31/24 04:05 Metoclopramide 10 Mg/2 Ml Inj IV 06/01/24 04:05 Q4H PRN Nausea Mineral Oil 30 ml 05/30/24 13:14 Mineral Oil 30 Ml Udc TOP PRN PRN Version Misoprostol 800 mcg 05/30/24 13:14 Misoprostol 200 Mcg Tablet NE NOW PRN Bleeding Misoprostol 50 mcg 05/30/24 22:45 Misoprostol 25 Mcg Tablet VAG Q4H OCTAVIA Nalbuphine HCl 5 mg 05/31/24 04:05 Nalbuphine 20 Mg/Ml Ampul IV Q6H PRN PRURITIS Nalbuphine HCl 2.5 mg 05/31/24 04:06 Nalbuphine 20 Mg/Ml Ampul IV Q10M PRN Pruritis Nalbuphine HCl 2.5 mg 05/31/24 04:16 Nalbuphine 20 Mg/Ml Ampul IV Q10M PRN Pruritis Naloxone HCl 0.2 mg 05/30/24 13:14 Naloxone 0.4 Mg/Ml Vial IV Q2MIN PRN Opiate Reversal Naloxone HCl 0.4 mg 05/31/24 04:05 Naloxone 0.4 Mg/Ml Vial IV Q2MIN PRN Opiate Reversal Ondansetron HCl 4 mg 05/30/24 13:14 05/31/24 11:47 Ondansetron 4 Mg/2 Ml Inj IV 4 mg Q4HR PRN Administration Nausea And Vomiting Ondansetron HCl 4 mg 05/31/24 04:05 Ondansetron 4 Mg/2 Ml Inj IV 06/01/24 04:05 Q6HR PRN Nausea Oxytocin 10 unit 05/30/24 13:14 Oxytocin 10 Unit/Ml Vial IM NOW PRN Bleeding Zolpidem Tartrate 5 mg 05/30/24 22:08 05/30/24 22:47 Zolpidem 5 Mg Tablet PO 5 mg BEDTIME PRN Administration Sleep Allergies: Allergies Allergy/AdvReac Type Severity Reaction Status Date / Time Penicillins [PENICILLINS] Allergy Intermediate Hives Verified 05/24/24 08:01 Procedure Insertion date: 05/31/24 Insertion time: 10:40 Prep/Local: 1% lidocaine (2 ml, and Chloraprep) Interspace: L3-4 Patient position: sitting Needle: 18 gauge Starla Loss of resistance with: saline EDENILSON at (cm): 7 Catheter placed at SKIN (cm): 14 Catheter in SPACE (cm): 7 Insertion: No CSF, No Blood, No Paresthesia with insertion, No Paresthesia with injection and No Test dose reaction Initial Medications TEST DOSE time: 10:41 TEST DOSE: 1.5% lidocaine with epinephrine 1:200k (mL): 3 BOLUS DOSE time: 10:00 BOLUS DOSE (mL): 10 BOLUS DOSE med: other (2 ml same as test dose. Pt still reported pain 7/10 with contractions so gave additional 8 ml of lido 2% PF. ) Infusion INFUSION: 0.125% bupivacaine and with fentanyl 2 mcg/mL Initial rate (mL/hr): 10 Subsequent interventions: Epidural pump restarted after new epidural catheter placement with same back infusing. 12:10 - Called by L&D RN that pt is c/o LUE numbness. Epidural paused while awaiting assessment. I was in OR. Brit Hernandez MARKETING FINANCE SPECIALIST assessed pt. Brit found that pt's abdomen was numb but she felt pinprick in LUE and had full ROM. Smile and frown WNL, BP normal to low-normal. RN reportedly gave a dose of ephedrine. Pt is now complete and pushing. Post-procedure Anesthesia date START: 05/31/24 Anesthesia time START: 10:26 Anesthesia date END: 05/31/24 Anesthesia time END: 13:32 Post-procedure Anesthesia Assessment: Yes CV function: HR/BP stable, Yes Resp function: RR/sat/airway adequate, Yes Post-op hydration adequate, Yes Pain control adequate, Yes Nausea & vomiting absent, Yes Temperature > 36 C, Yes Mental status appropriate and No Anesthesia complications
[2024-05-31] MEDS: fentaNYL 100 MCG/2 ML INJ 50 MCG IV (13:55)
[2024-05-31] MEDS: LIDOCAINE 1% 20 ML INJ (14:05)
--- NOTE | 2024-05-31 14:35 | P.PCNOB_ITS ---
Events: Premature Rupture Membrane and Prolonged Rupture Membrane Labor & Delivery Delivery date: 05/31/24 Delivery Time: 13:32 Cervical ripening method: per misoprostal protocol Delivery augmentation: rupture of membranes (rupture of forebag ) and pitocin Delivery monitor: external FHT, external uterine and internal FHT Route of delivery: L&D Laceration Description: Perineal - 1st Degree, Vaginal - 2nd Degree and Labial Delivery repair: vicryl (2-0) Estimated blood loss (mL): 350 Anesthesia Type: Epidural Complications: FHR decelerations during pushing complex laceration repair Narrative: PROCEDURE: 23 yo at 41w0d presented for NST for post-dates and mentioned concern for LOF. She was found to be amnisure positive and was admitted to Labor and Delivery. ROM occured around 4am prior to arrival and was clear per pt report. SVE was 1.5/60/-3 ([place] scoere of 5). She was given 1 dose of oral cytotec for ripening as she was showing minimal contractions on TOCO. Before te second dose of Miso was given, she began ramiro to frequently to give the dose. She was then started on Pitocin for augmentation. Pain was controlled with epidural. She intermittently showed periods with shallow late decelerations during labor but good variability persisted. The patient progressed and achieved complete cervcal dilation. She began pushing, during which time FHR baseline dropped lsightly and became challenging to monitor. FSE was placed to assist with monitoring but due to infants hair, there was still some difficulty. With FSE, FHR was more reassuring and showed return to 100-115s between contractions. As she was showing progress, she continued to push with contractions. Discussion was held about Vacuum but soon after discussion descent proceeded more quickly and she delivered a viable female infant with APGARs of 7/9 at 13:32 via . The cord was cut and clamped after it stopped after approximately 60 seconds. The placenta delivered with gentle cord traction, and appeared complete. The perineum and vagina were inspected and showed a complex stellate laceration. This laceration was deep along the left sulcus but did not reach posterior the cervix. Laceration was contiguous with a right-sided sulcal tear that was somewhat less deep. At midline a raised rugae within natural anatomy had a v- shaped flap at the distal aspect just above a first-degree perineal laceration. Contiguous with the sulcal laceration on the left side, a labial laceration was also noted. Repair was initiated from the left sulcal tear apex as this was the deepest component of the tear and appeared to be bleeding more heavily than the other areas. Laceration was completed in the usual fashion down the sulcal tear then into the left labial laceration. After bringing together the base of the left sulcal tear and labial laceration, perineal repair was completed before moving to the right sulcal laceration. This was repaired deep then moving back towards the introutus, repaired superioroly. At the most distal aspect of the right sulcal tear, midline flap was reattached as well. Needle and sponge counts were correct.? The vagina was inspected and no items were left in situ. PREPROCEDURE DIAGNOSIS: Intrauterine at 41w1d Failed 1hr GTT, unable to tolerate 3hr- checked glucomter reads with all nml reads GBS negative RH negative POSTPROCEDURE DIAGNOSIS: Intrauterine at 41w1d, delivered Same as preprocedure Plan for aftercare: Routine care
[2024-05-31] MEDS: IBUPROFEN 600 MG TABLET PO (16:59)
[2024-05-31] MEDS: DERMOPLAST SPRAY 20% 60 ML 1 SPRAY TOP (16:59)
[2024-05-31] MEDS: ACETAMINOPHEN 325 MG TABLET 650 MG PO ×2 (16:59→23:42)
[2024-05-31] MEDS: WITCH HAZEL/GLYCERIN PADS 1 EACH TOP (16:59)
[2024-06-01] MEDS: IBUPROFEN 600 MG TABLET PO ×2 (01:09→08:50)
[2024-06-01] MEDS: ACETAMINOPHEN 325 MG TABLET 650 MG PO ×2 (06:04→12:06)
[2024-06-01] MEDS: PRENATAL VIT,CALC/IRON/FOLIC 1 TABLET 1 TAB PO (08:50)
[2024-06-01] MEDS: DOCUSATE 100 MG CAPSULE PO (08:50)
--- NOTE | 2024-06-01 09:41 | P.DS_ITS ---
Discharge Providers Provider Date of admission: 05/30/24 11:33 Discharge Date: 06/01/24 Primary care physician: Suyapa Negrete MD Consults: 05/30/24 13:14 Consult to Anesthesiology Urgent Comment: Consulting Provider: Jovanna Hoyos Reason for consultation: Epidural 06/01/24 15:21 Consult to Electronic Calibration Technician Routine Comment: 06/01/24 16:42 Consult to Electronic Calibration Technician Routine Comment: Discharge provider: Suyapa Negrete MD Summary Hospital Course Date Patient Seen: 06/01/24 Time Patient Seen: 10:04 Hospital Course: 23 yo at 41w0d who presented for NST for post-dates and mentioned concern for LOF. She was found to be amnisure positive and was admitted to Labor and Delivery. ROM occured around 4am prior to arrival and was clear per pt report. SVE was 1.5/60/-3 ([place] scoere of 5). She was given 1 dose of oral cytotec for ripening as she was showing minimal contractions on TOCO. Before te second dose of Miso was given, she began ramiro to frequently to give the dose. She was then started on Pitocin for augmentation. Pain was controlled with epidural. She intermittently showed periods with shallow late decelerations during labor but good variability persisted. The patient progressed and achieved complete cervcal dilation. She began pushing, during which time FHR baseline dropped lsightly and became challenging to monitor. FSE was placed to assist with monitoring but due to infants hair, there was still some difficulty. With FSE, FHR was more reassuring and showed return to 100-115s between contractions. As she was showing progress, she continued to push with contractions. Discussion was held about Vacuum but soon after discussion descent proceeded more quickly and she delivered a viable female with APGARs of 7/9 at 13:32 via . The cord was cut and clamped after it stopped after approximately 60 seconds. The placenta delivered with gentle cord traction, and appeared complete. The perineum and vagina were inspected and showed a complex stellate laceration which was repaired in [facility] usual fashion, see procedure note for details. she is having perineal/vaginal pain. She was given gabapentin for this pain. She is well and iis passing gas and voiding. Peripartum Data Infant Delivery Method: Natural Vaginal Laceration Description: Perineal - 1st Degree, Vaginal - 2nd Degree and Labial complications: none Time Spent with Patient Time attestation: Total time spent providing and/or coordinating discharge services: Time spent: Greater than 30 minutes Objective Labs 05/30/24 13:10 Labs: Laboratory Results - last 24 hr 06/01/24 06:28 Maternal Bleed Negative Exam Narrative Exam Narrative: GEN: well appearing, NAD Pulm: breathing comfortably on RA Chest: pumping, milk in bottle CV: warm and well perfused Discharge Plan Discharge Plan Patient Disposition: Home Discharge orders & Medications Prescriptions: New gabapentin 300 mg capsule 300 mg PO TID Qty: 20 0RF Continued (DME) breast pump Device See Rx Instructions .Route Qty: 1 0RF Rx Instructions: As directed (DME) glucometer See Rx Instructions .Route .MEDSUPPLY Qty: 1 0RF Rx Instructions: As directed to test blood glucose 4 times daily (DME) glucometer test strips See Rx Instructions .Route .MEDSUPPLY Qty: 100 2RF Rx Instructions: As directed to test glucose 4 times daily (DME) lancets [Accu-Chek Softclix Lancets] Misc See Rx Instructions .Route Qty: 100 0RF Rx Instructions: As directed vit-ferrous sulfat-FA 27 mg iron- 0.8 mg tablet 1 tab PO albuterol sulfate 90 mcg/actuation HFA aerosol inhaler 2 puff inhalation Q4-6H PRN (Reason: Adequate Ventilation) Follow up/Referrals: Suyapa Negrete MD [Primary Care Provider] - Visit Report/Discharge Packet Stand Alone Forms: Patient Portal/API, Stroke Signs & Symptoms Discharge Data Primary Care Provider: Suyapa Negrete
[2024-06-01] MEDS: GABAPENTIN 300 MG CAPSULE PO (12:06)
[2024-06-01] MEDS: RHO(D) IMMUNE GLOBULIN 1,500 UNIT SYRINGE 1500 UNIT IM (14:01)
== END 2024-06-01 13:30 | disposition home or self-care (01) | DRG 807 ==
PROVIDERS: Admitting Provider Family Medicine; PCP Family Medicine; Referring Provider Family Medicine; Visit Provider Family Medicine
DX: O42.12 Full-term premature rupture of membranes, onset of labor more than 24 hours following rupture (principal); Z37.0 Single live birth; O76 Abnormality in fetal heart rate and rhythm complicating labor and delivery; Z3A.41 41 weeks gestation of pregnancy; O48.0 Post-term pregnancy; O70.1 Second degree perineal laceration during delivery; O70.0 First degree perineal laceration during delivery
CPT/HCPCS: 36415; 59050; 59200; 59400; 85025; 85461; 86850; 86900; 86901; A9270; G0379; J2405; J2590; J2790; J3010; S0191

== ENCOUNTER 2024-09-26 12:33 | Day surgery (SDC) | payer OTHER, SELFPAY ==
[2024-09-17 08:53] VITALS: BMI 30.2
[2024-09-26] VITALS (7 sets, daily range): BP systolic 94–114; BP diastolic 44–76; PULSE 61–69; RESP 12–19; TEMP 36.1–36.2; O2SAT 96–100; BMI 30.2
[2024-09-26] MEDS: SCOPOLAMINE 1 PATCH TOP (13:15)
[2024-09-26] MEDS: ACETAMINOPHEN 325 MG TABLET 975 MG PO (13:24)
[2024-09-26] MEDS: FAMOTIDINE 20 MG/2 ML VIAL IV (13:24)
[2024-09-26] MEDS: LACTATED RINGERS 1,000 ML 120 ML IV (14:00)
--- NOTE | 2024-09-26 14:06 | SUR.PREOP ---
Scopolamine patch placed behind pt's R ear, after d/w Brit Hernandez CRNA, this can inhibit production of breastmilk, so scopolamine patch d/c'd @ 5195. Christiano CEDILLO
--- NOTE | 2024-09-26 14:39 | PM.PREOP ---
Pre-operative Note COVID-19 COVID-19 status: Not tested Interval Note History & Physical reviewed/Exam performed by Physician: Yes Changes to H&P: No
--- NOTE | 2024-09-26 15:10 | SUR.OPER ---
Lithotomy on padded OR bed, head on pillow, arms secured on padded arm boards at <90 degrees abduction. Legs secured in padded yellow fins stirrups.
[2024-09-26] MEDS: BUPIVACAINE 0.25% W/ EPI 30 ML VIAL INJ (15:16)
[2024-09-26] MEDS: BACITRACIN OINT 0.9 GM PCKT 1 APPLIC TOP (15:32)
--- NOTE | 2024-09-26 15:57 | PM.GYNOP.1 ---
Operative Date/Time/Diagnoses Date of procedure: 09/26/24 Time of procedure: 14:45 Pre-op diagnosis: perineal pain Post-op diagnosis: same Procedure & Clinicians Procedure: Procedures Operation Date: 09/26/24 13:45 Actual Procedure Side Surgeon p Perineoplasty Not Applicable Zoran Hayes MD Indications: Lakeshia is a 23-year-old primipara status post spontaneous vaginal on 05/31/2024 who presents with persistent pain and incomplete healing of her perineal laceration repair. Patient experienced a stellate type laceration at the time of and has had difficulty healing with partial breakdown of the repair and subsequent healing by secondary intention. She continues to have pain in the perineal area with sitting, squatting, or any other activity put which but strain on the pelvic floor and perineal body. She denies urinary or stool incontinence. We had an extended discussion regarding the healing which has taken place in the 11 weeks or so since delivery and it appears as though a hymeneal remnant has become entrapped in the midline portion of the perineal laceration which occurred at time of delivery. We discussed options for treatment and patient wishes to proceed with perineoplasty on an outpatient basis. She presents today for her scheduled surgery. Surgeon: Zoran Hayes Anesthesia Type: General Operative Notes Findings: Hypertrophic scarring at the site of midline perineal laceration repair following spontaneous vaginal . Closure Type: primary Specimen(s): none Applied: none Estimated blood loss (mL): 5 Blood products transfused: none Procedure in detail: With the patient under satisfactory general anesthesia in the modified dorsal lithotomy position, the perineum and vagina were prepped and draped in the usual manner for perineoplasty. A pre-surgical safety time-out was then taken in accordance with [facility] OR protocols. The perineal tissues were carefully inspected and the area of incision was marked with skin marker. The area was then infiltrated with 0.25% Marcaine with epinephrine. Monopolar cutting current with the needle-tip Bovie was then used to delineate the area to be excised and subsequently undermined with Metzenbaum scissors in order to fully extract the scar tissue to be removed. Once the area of tissue which required removal was fully excised, the areas were rendered hemostatic with judicious use of monopolar coagulation current. The defect was then closed in layers with 3-0 Vicryl interrupted in the deep tissues and oversewn with 4-0 Monocryl interrupted on the skin edges. Antibiotic ointment was applied and the procedure terminated with the patient awakened from anesthesia and transferred to the PACU for a period of observation and recovery after tolerating the procedure well. Complications: none Post-operative Condition: stable Disposition: PACU Plan for aftercare: Routine postoperative care with follow-up planned for 2 weeks after surgery or as needed.
== END 2024-09-26 16:49 | disposition home or self-care (01) ==
PROVIDERS: PCP Family Medicine; Referring Provider Obstetrics & Gynecology; Visit Provider Obstetrics & Gynecology
DX: N99.2 Postprocedural adhesions of vagina (principal); O90.89 Other complications of the puerperium, not elsewhere classified
CPT/HCPCS: 56810; J1100; J1885; J2405; J2704; J3010